=== PATIENT | female | born 2000 | race African-American/Black ===

== ENCOUNTER 2021-11-11 19:03 | Emergency (ER) | payer SELFPAY ==
[~2021-11-11] VITALS: Ht 170.2 cm; Wt 65.0 kg
[2021-11-11 19:33] VITALS: BP 139/65
== END 2021-11-11 21:14 | disposition left against medical advice (07) ==
LOC: EMS 19:05 → EDSEX 19:05 → EMS 21:14
DX: Z00.00 Encounter for general adult medical examination without abnormal findings (principal); Z53.21 Procedure and treatment not carried out due to patient leaving prior to being seen by health care provider